=== PATIENT | female | born 1945 | race Caucasian/White ===

== ENCOUNTER 2019-04-01 14:51 | Outpatient (CLI) | payer MEDICARE, OTHER, SELFPAY ==
--- NOTE | 2019-04-01 15:09 | MM_ITS ---
WS: [id number] BILATERAL DIGITAL SCREENING MAMMOGRAPHY WITH CAD CLINICAL INFORMATION: SCREENING HISTORY: Screening mammogram. No current complaints. COMPARISON: TECHNIQUE: Bilateral CC and MLO views. FINDINGS: The breasts are composed of heterogeneous fibroglandular density tissue, which can limit the detectio n of small underlying mass lesions. Vascular calcification. Biopsy clip right breast. Punctate calcif ications right breast are stable. No suspicious mass, asymmetry, calcifications, or architectural dis tortion. No evidence of malignancy. MM/[id number] IMPRESSION: BI-RADS: 2-Benign FOLLOW UP: 1 Year Follow-up Recommend return to annual screening mammography.
== END 2019-04-01 14:52 | disposition home or self-care (01) ==
LOC: RADSHAW 15:04
PROVIDERS: Family Provider Family Medicine; PCP Family Medicine; Visit Provider Family Medicine
DX: Z12.31 Encounter for screening mammogram for malignant neoplasm of breast (principal)
CPT/HCPCS: 77067

== ENCOUNTER 2019-12-12 19:49 | Emergency (ER) | payer MEDICARE, OTHER, SELFPAY ==
[2019-12-12 19:58] VITALS: BP 137/75; PULSE 71; RESP 18; TEMP 36.5; O2SAT 97; BMI 24.7
--- NOTE | 2019-12-12 20:14 | ED_ITS ---
HPI - Extremity Problem General: Chief complaint: Extremity Problem,Nontraumatic Stated complaint: left leg pain Time Seen by Provider: 12/12/19 20:05 Source: patient Mode of arrival: ambulatory Limitations: no limitations History of Present Illness: HPI Narrative: 74-year-old female states she had a cramp in her left thigh a few hours ago. States it was a sharp pain that lasted for 10 minutes and is since completely resolved. She states she has been working out more and did 40 minutes of yoga today. She was concerned she could have a DVT. She denies any shortness of breath. She denies any lower leg pain. Denies any pain currently. MD Complaint: extremity pain Onset (ago): hour(s) Location: left Associated symptoms: Deny chest pain, fever(s) or rash Review of Systems Const: Denies: fever(s), chills, body aches or change in appetite Eyes: Denies: blurry vision or eye discomfort ENMT: Denies: throat pain or dental pain Card: Denies: chest pain Resp: Denies: dyspnea GI: Denies: abdominal pain, nausea, vomiting or diarrhea : Denies: dysuria Musc: Reports: extremity pain Skin/Breast: Denies: rash Neuro: Denies: headache(s) Psych: Denies: depression Bam/Lymph: Denies: easy bruising All/Imm: Denies: urticaria Physical Exam Const: COMMON NORMALS: no acute distress, patient oriented x3 and healthy appearing HENMT: COMMON NORMALS: normocephalic and atraumatic HEAD & SCALP: normocephalic and atraumatic Eye: COMMON NORMALS: Equal, round and reactive pupils present and EOMs intact bilaterally PUPIL: Yes Equal, round and reactive pupils present Neck/C-Spine: COMMON NORMALS: full ROM and supple Chest: COMMONS NORMALS: normal inspection of the chest and normal palpation of entire chest wall Resp: COMMON NORMALS: normal respiratory effort, No retractions, No use of accessory muscles and clear to auscultation bilaterally AUSCULTATION: clear to auscultation bilaterally Cardio: COMMON NORMALS: regular rate, regular rhythm and No murmurs present (Cardio) RATE: regular rate RHYTHM: regular rhythm GI: COMMON NORMALS: Normal to inspection, nondistended, normoactive bowel sounds present, Soft to palpation, non-tender and no masses PALPATION: Yes Soft to palpation Extremity: COMMON NORMALS: normal to inspection and full ROM NARRATIVE EXTREMITY EXAM: No tenderness over her left leg. No rash noted. No swelling. Distal pulses intact. Neuro: COMMON NORMALS: patient oriented x3, moves all extremities and no focal motor deficits Psych: COMMON NORMALS: mental status grossly normal, Normal thought process present and cooperative THOUGHT PROCESS: Normal thought process present Skin: COMMON NORMALS: no rashes or lesions noted and no wounds GENERAL SKIN EXAM: no rashes or lesions noted Course Vital Signs: Vital signs: Vital Signs Temperature 97.7 F 12/12/19 19:58 Pulse Rate 71 12/12/19 19:58 Respiratory Rate 18 12/12/19 19:58 Blood Pressure 137/75 12/12/19 19:58 Pulse Oximetry 97 12/12/19 19:58 MDM - Extremity (Nontraumatic) MDM Narrative: Medical decision making narrative: Patient presents with left leg pain is likely a muscle cramp. Patient has no signs of DVT and has no pain currently. She is stable for discharge and is to hydrate. She is to return if worsening. Discharge Plan Discharge Patient Disposition: Home Clinical Impression: Left leg pain Condition: Stable Discharge Orders: Discharge Order (Routine); Ordered 12/12/19 Ordered By: Sybil Haines Referrals: Jeromy Porter MD [Primary Care Provider] - Discharge Diet: Advance as tolerated Discharge Activity: Resume usual activity Patient Instructions: Leg Cramps (ED), Muscle Cramp (ED) Coding Level of Care Code ED Certified Court Interpreter for Chg Fwd Exam Comprehensive
== END 2019-12-12 20:29 | disposition home or self-care (01) ==
LOC: ER 20:25
PROVIDERS: Emergency Provider Emergency Medicine; PCP Family Medicine
DX: M79.605 Pain in left leg (principal)
CPT/HCPCS: 12345; 99281

== ENCOUNTER 2020-02-11 14:00 | Outpatient (CLI) | payer MEDICARE, OTHER, SELFPAY ==
--- NOTE | 2020-02-11 14:07 | XR_ITS ---
WS: [id number] SCREENING DEXA SCAN [employer] CLINICAL INFORMATION: POST MENOPAUSAL COMPARISON: FINDINGS: The L1-L4 bone mineral density measures 0.919 g/cm2. This corresponds to a T score score of -2.2 and Z score of -0.5. Left femoral neck bone mineral density measures 0.738 g/cm2. This corresponds to a T score of -2.1 an d Z score of -0.5. Right femoral neck bone mineral density measures 0.710 g/cm2. This corresponds to a T score -2.4of an d Z score of -0.7. Mean femoral neck bone mineral density measures 0.724 g/cm2. This corresponds to a T score of -2.3 an d Z score of -0.6. XR/XR DEXA axial skeleton* [id number] IMPRESSION: Osteopenia at the upper end of the range. Patient's FRAX calculated 10 year probability for major osteoporotic fracture i s 45.6 % and osteoporotic hip fracture is 31.1%.
== END 2020-02-11 14:01 | disposition home or self-care (01) ==
LOC: RADWPI 14:05
PROVIDERS: PCP Family Medicine; Visit Provider Family Medicine
DX: Z78.0 Asymptomatic menopausal state (principal); M85.88 Other specified disorders of bone density and structure, other site
CPT/HCPCS: 77080

== ENCOUNTER 2020-05-25 14:54 | Outpatient (CLI) | payer MEDICARE, OTHER, SELFPAY ==
--- NOTE | 2020-05-25 14:57 | MM_ITS ---
WS: [id number] BILATERAL SCREENING DIGITAL MAMMOGRAM WITH CAD HISTORY: SCREENING COMPARISON: 04/01/2019 and 12/04/2017 Bilateral CC and MLO views submitted. Computer aided detection analyzed. Breast composition: The breasts are heterogeneously dense, which may obscure small masses. No suspici ous masses, microcalcifications or architectural distortion. Benign calcifications in each breast. Th abdiel calcifications have been present on several prior examinations. MM/[id number] IMPRESSION: BI-RADS: 2-Benign FOLLOW UP: 1 Year Follow-up
== END 2020-05-25 14:55 | disposition home or self-care (01) ==
LOC: RADSHAW 14:56
PROVIDERS: PCP Family Medicine; Visit Provider Family Medicine
DX: Z12.31 Encounter for screening mammogram for malignant neoplasm of breast (principal)
CPT/HCPCS: 77067

== ENCOUNTER 2020-07-12 12:46 | Outpatient (RCR) | payer MEDICARE, OTHER, SELFPAY | END 2020-07-22 23:59 | disposition home or self-care (01) | LOC: SPT 12:46 | PROVIDERS: PCP Family Medicine; Referring Provider Family Medicine; Visit Provider Family Medicine | DX: M76.30 Iliotibial band syndrome, unspecified leg (principal) | CPT/HCPCS: 97110; 97162 ==

== ENCOUNTER 2020-07-23 06:00 | Outpatient (RCR) | payer MEDICARE, OTHER, SELFPAY | END 2020-08-22 23:59 | disposition home or self-care (01) | LOC: SPT 06:00 | PROVIDERS: PCP Family Medicine; Referring Provider Family Medicine; Visit Provider Family Medicine | DX: M76.30 Iliotibial band syndrome, unspecified leg (principal) | CPT/HCPCS: 97110; 97150 ==

== ENCOUNTER 2021-06-14 14:14 | Outpatient (CLI) | payer MEDICARE, OTHER, SELFPAY ==
--- NOTE | 2021-06-14 14:22 | MM_ITS ---
WS: [id number] BILATERAL SCREENING 3D TOMOSYNTHESIS DIGITAL MAMMOGRAM WITH CAD HISTORY: SCREENING COMPARISON: 05/25/2020, 04/01/2019, 03/21/2017 and 12/04/2017 Bilateral CC and MLO views submitted. Computer aided detection analyzed. Breast composition: The breasts are heterogeneously dense, which may obscure small masses. No suspici ous masses, microcalcifications or architectural distortion. There are calcifications in the upper-ou ter quadrant of the RIGHT breast which have been present since at least 2017 without increase. Asymme tries are also stable. MM/[id number] IMPRESSION: BI-RADS: 2-Benign FOLLOW UP: 1 Year Follow-up
== END 2021-06-14 14:15 | disposition home or self-care (01) ==
LOC: RADSHAW 14:18
PROVIDERS: PCP Family Medicine; Visit Provider Family Medicine
DX: Z12.31 Encounter for screening mammogram for malignant neoplasm of breast (principal)
CPT/HCPCS: 77063; 77067

== ENCOUNTER 2022-06-26 12:38 | Outpatient (CLI) | payer MEDICARE, OTHER, SELFPAY ==
--- NOTE | 2022-06-26 12:58 | MM_ITS ---
WS: [id number] BILATERAL 3D TOMOSYNTHESIS DIGITAL SCREENING MAMMOGRAPHY WITH CAD CLINICAL INFORMATION: SCREENING HISTORY: Screening mammogram. No current complaints. COMPARISON: June 14, 2021 TECHNIQUE: Bilateral CC and MLO views. FINDINGS: The breasts are composed of heterogeneous fibroglandular density tissue, which can limit the detectio n of small underlying mass lesions. No suspicious mass, asymmetry, calcifications, or architectural d istortion. No evidence of malignancy. Incidental punctate calcifications. Vascular calcification. Sta ble clustered punctate calcifications RIGHT breast. MM/[id number] IMPRESSION: BI-RADS: 2-Benign FOLLOW UP: 1 Year Follow-up Recommend return to annual screening mammography.
== END 2022-06-26 12:39 | disposition home or self-care (01) ==
LOC: RAD 12:44
PROVIDERS: PCP Family Medicine; Visit Provider Family Medicine
DX: Z12.31 Encounter for screening mammogram for malignant neoplasm of breast (principal)
CPT/HCPCS: 77063; 77067

== ENCOUNTER 2022-07-26 09:07 | Outpatient (CLI) | payer MEDICARE, OTHER, SELFPAY ==
--- NOTE | 2022-07-26 10:22 | XR_ITS ---
WS: [id number] SCREENING DEXA SCAN [employer] CLINICAL INFORMATION: POSTMENOPAUSAL COMPARISON: 2019 FINDINGS: The L2-L4 bone mineral density measures 1.08. This corresponds to a T score of 1.0 and Z score of 0.8 . Left femoral neck bone mineral density measures 0.687 g/cm2. This corresponds to a T score of -2.5 an d Z score of -0.7. Right femoral neck bone mineral density measures 0.672 g/cm2. This corresponds to a T score -2.7of an d Z score of -0.8. Mean femoral neck bone mineral density measures 0.680 g/cm2. This corresponds to a T score of -2.6 an d Z score of -0.7. XR/XR DEXA axial skeleton* [id number] IMPRESSION: Osteopenia lumbar spine. 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 Patient's FRAX calculated 10 year probability for major osteoporotic fracture i s 46.7 % and osteoporotic hip fracture is 33.0%. Bone mineral density lumbar spine has increased 9.6% since 2020 Bone mineral density femoral necks has decreased -6.1% since 2020.
== END 2022-07-26 09:08 | disposition home or self-care (01) ==
PROVIDERS: PCP Family Medicine; Visit Provider Family Medicine
DX: Z78.0 Asymptomatic menopausal state (principal); M85.88 Other specified disorders of bone density and structure, other site
CPT/HCPCS: 77080

== ENCOUNTER 2023-07-02 08:12 | Outpatient (CLI) | payer MEDICARE, OTHER, SELFPAY ==
--- NOTE | 2023-07-02 08:28 | MM_ITS ---
WS: [id number] BILATERAL 3D TOMOSYNTHESIS DIGITAL SCREENING MAMMOGRAPHY WITH CAD CLINICAL INFORMATION: SCREENING HISTORY: Screening mammogram. No current complaints. COMPARISON: 06/26/2022 TECHNIQUE: Bilateral CC and MLO views. FINDINGS: The breasts are composed of heterogeneous fibroglandular density tissue, which can limit the detectio n of small underlying mass lesions. Increasing 8 mm ovoid asymmetric density inferior quadrant LEFT b reast best seen on the MLO view. Recommend further evaluation with LEFT breast diagnostic mammography and ultrasound if persistent. RIGHT breast is unchanged. Vascular calcification. Stable clustered punctate calcifications RIGHT mirta ast. IMPRESSION: MM/[place] [id number] BI-RADS: 0-Incomplete: Need additional imaging evaluation FOLLOW UP: Need Additional Imaging Recommend further evaluation with LEFT breast diagnostic mammography and ultras ound if persistent.
== END 2023-07-02 08:13 | disposition home or self-care (01) ==
LOC: RAD 08:12
PROVIDERS: PCP Family Medicine; Visit Provider Family Medicine
DX: Z12.31 Encounter for screening mammogram for malignant neoplasm of breast (principal); R92.323 Mammographic fibroglandular density, bilateral breasts
CPT/HCPCS: 77063; 77067

== ENCOUNTER 2023-07-29 13:36 | Outpatient (CLI) | payer MEDICARE, OTHER, SELFPAY ==
--- NOTE | 2023-07-29 13:43 | MM_ITS ---
WS: [id number] LEFT 3D TOMOSYNTHESIS DIGITAL MAMMOGRAPHY WITH CAD CLINICAL INFORMATION: ABNORMAL MAMMO HISTORY: Additional views COMPARISON: 07/02/2023 TECHNIQUE: 3 views of the left breast were obtained. FINDINGS: The left breast is composed of heterogeneous fibroglandular density tissue, which can limit the detec tion of small underlying mass lesions. Previously described 8 mm ovoid asymmetry inferior quadrant LE FT breast partially compresses out on the spot compression views and ultrasound is pending. No new ab normalities. ULTRASOUND BREAST LEFT TECHNIQUE: Ultrasound left breast focused area of concern. CLINICAL INFORMATION: ABNORMAL MAMMO FINDINGS: Ultrasound LEFT breast inferior quadrant. Normal underlying parenchymal tissue. No cystic or solid le sions. No suspicious findings to target for biopsy. Findings are benign. Recommend return to annual s creening mammography. MM/[id number] IMPRESSION: BI-RADS: 2-Benign FOLLOW UP: 1 Year Follow-up Recommend return to annual screening mammography.
== END 2023-07-29 13:37 | disposition home or self-care (01) ==
LOC: RAD 13:36
PROVIDERS: PCP Family Medicine; Visit Provider Family Medicine
DX: R92.8 Other abnormal and inconclusive findings on diagnostic imaging of breast (principal); R92.332 Mammographic heterogeneous density, left breast
CPT/HCPCS: 76642; 77061; G0279